=== PATIENT | female | born 1995 | race Caucasian/White ===

== ENCOUNTER 2016-04-30 02:29 | Outpatient (CLI) | payer BC, OTHER ==
[~2016-04-30] VITALS: Ht 167.6 cm; Wt 95.5 kg
[2016-04-30] VITALS (9 sets, daily range): BP systolic 104–129; BP diastolic 57–91
[~2016-04-30 02:29] MED LIST: ACETAMINOPHEN-1 EAC1 PO; CIPRO500 MG PO; FLEXERIL10 MG PO; MEDROL DOSEPAK4 MG PO; MOTRIN800 MG PO; PRENATAL TABLE1 EAC3 PO; PYRIDIUM100 MG PO; TYLENOL EXTRA500 MG PO
[2016-04-30 06:26] LABS: ADD MIUA? NO; BILIRUBIN NEGATIVE; BLOOD NEGATIVE; COLOR YELLOW ((YELLOW)); GLUCOSE (STRIP) NEGATIVE; KETONES NEGATIVE; LEUKOCYTES NEGATIVE; NITRITE NEGATIVE; PROTEIN (STRIP) NEGATIVE; SPECIFIC GRAVITY 1.014 (1.000-1.030); UCUL ADDED? NO
[2016-04-30] MEDS ORDERED: IRON325 MG PO (06:55)
[2016-04-30] MEDS ORDERED: IRON325 M1 PO (06:56)
[2016-04-30 07:07] LABS: AMPHETAMINES QUANT VALUE 0 NG/ML; BARBITUATES QUANT VALUE 0 NG/ML; BENZODIAZEPINES QUANT VALUE 0 NG/ML; BENZODIAZEPINES, URINE SCREEN Negative (200 ng/mL); MARIJUANA QUANT VALUE 0 NG/ML; OPIATES QUANTITATIVE VALUE 0 NG/ML; PHENCYCLIDINE QUANT VALUE 0 NG/ML
[2016-05-01 02:55] VITALS: BP 108/54
[2016-05-01 07:44] VITALS: BP 103/56
[2016-05-01 11:23] VITALS: BP 115/62
[2016-05-01] MEDS ORDERED: PROCARDIA20 MG PO (12:42)
== END 2016-05-01 13:32 | disposition home or self-care (01) ==
LOC: LDRP-OP 02:29 → 2WEST 02:30
PROVIDERS: Nurse Practitioner
DX: O47.03 False labor before 37 completed weeks of gestation, third trimester (principal); O99.89 Other specified diseases and conditions complicating pregnancy, childbirth and the puerperium; Z3A.30 30 weeks gestation of pregnancy; F41.1 Generalized anxiety disorder
CPT/HCPCS: 59025; 76815; 76817; 81003; G0378; J0702; J7030; J7120

== ENCOUNTER 2016-06-13 13:13 | Outpatient (CLI) | payer BC, OTHER ==
[~2016-06-13] VITALS: Ht 167.6 cm; Wt 98.9 kg
[~2016-06-13 13:13] MED LIST changes: +IRON325 M1 PO; +IRON325 MG PO; +PROCARDIA20 MG PO
[2016-06-13 13:41] VITALS: BP 133/85
[2016-06-13] MEDS ORDERED: EXCEDRIN EXTRA1 EACH PO (13:48)
[2016-06-13 15:29] VITALS: BP 127/67
[2016-06-13 17:37] VITALS: BP 125/73
[2016-06-13 18:54] VITALS: BP 127/77
[2016-06-13 20:30] VITALS: BP 122/65
[2016-06-13 21:10] VITALS: BP 131/79
== END 2016-06-13 22:10 | disposition home or self-care (01) ==
LOC: LDRP-OP → 2WEST 13:14 → LDRP-OP 08-05 14:02
DX: O60.03 Preterm labor without delivery, third trimester (principal); Z3A.36 36 weeks gestation of pregnancy
CPT/HCPCS: 59025; G0378; J0702; J7120

== ENCOUNTER 2016-06-14 14:11 | Outpatient (CLI) | payer BC, OTHER ==
[~2016-06-14] VITALS: Ht 167.6 cm; Wt 100.9 kg
[~2016-06-14 14:11] MED LIST changes: +EXCEDRIN EXTRA1 EACH PO
[2016-06-14 14:40] VITALS: BP 112/67
[2016-06-14 15:22] VITALS: BP 113/73
== END 2016-06-14 17:05 | disposition home or self-care (01) ==
LOC: LDRP-OP 14:11 → 2WEST 14:12 → LDRP-OP 08-05 00:04
DX: O47.03 False labor before 37 completed weeks of gestation, third trimester (principal); O99.89 Other specified diseases and conditions complicating pregnancy, childbirth and the puerperium; Z3A.36 36 weeks gestation of pregnancy
CPT/HCPCS: 59025; G0378

== ENCOUNTER 2016-06-15 14:42 | Outpatient (CLI) | payer BC, OTHER ==
[~2016-06-15] VITALS: Ht 167.6 cm; Wt 99.3 kg
[2016-06-15 14:45] VITALS: BP 135/90
[2016-06-15 16:12] VITALS: BP 117/65
[2016-06-15 16:43] VITALS: BP 121/76
[2016-06-15 17:45] VITALS: BP 133/75
[2016-06-16] MEDS ORDERED: PERCOCET 5/31 TABLET PO (20:13)
[2016-06-16] MEDS ORDERED: MOTRIN800 MG PO (20:13)
== END 2016-06-15 19:50 | disposition home or self-care (01) ==
LOC: LDRP-OP 14:42 → 2WEST 14:43 → LDRP-OP 08-05 17:12
DX: O47.1 False labor at or after 37 completed weeks of gestation (principal); Z3A.37 37 weeks gestation of pregnancy
CPT/HCPCS: 59025; G0378; J2270; J2550

== ENCOUNTER 2016-06-16 06:23 | Inpatient (IN) | payer BC, OTHER ==
[2016-06-16] VITALS (21 sets, daily range): BP systolic 95–143; BP diastolic 50–86
[~2016-06-16] VITALS: Ht 167.6 cm; Wt 100.6 kg
[2016-06-16 07:16] LABS: EOSINOPHIL (%) 0 % (0-5); HEMATOCRIT 33.7 % (36.0-46.0); IMMATURE GRANULOCYTE (%) 0.6 % (0.0-0.7); IMMATURE GRANULOCYTE COUNT 0.1 K/uL; LYMPHOCYTE COUNT 1.5 K/uL (1.0-2.8); MCH 28.9 PG (29.0-34.0); MCHC 33.2 G/DL (30.0-36.0); MCV 86.9 FL (83-99); MEAN PLAT.VOLUME 10.5 uM^3 (9.5-12.4); MONOCYTE (%) 6.8 % (3-12); MONOCYTE COUNT 1.3 K/uL (0-0.8); NEUTROPHIL (%) 84.7 % (45-76); NEUTROPHIL COUNT 16.2 K/uL (1.8-6.4); PLATELET COUNT 262 K/uL (156-360); RBC DIS.WIDTH-CV 15.2 % (11.8-14.6); RBC DIS.WIDTH-SD 47.3 % (39-53); RED BLOOD COUNT 3.88 M/uL (3.80-5.20); WHITE BLOOD COUNT 19.2 K/uL (4.1-10.2)
[2016-06-16] MEDS ORDERED: PERCOCET 5/31 TABLET PO (20:13)
[2016-06-16] MEDS ORDERED: MOTRIN800 MG PO (20:13)
[2016-06-16 22:03] LABS: BASE EXCESS -7.2 mEq/L (-3 to +3); BICARBONATE 22.4 mEq/L (22-26); CARBOXY HGB 0.4 % (0-5); PCO2 60 mm Hg (35-45)
[2016-06-16 22:08] LABS: PO2 < 28 mm Hg (80-100)
[2016-06-16 22:09] LABS: BASE EXCESS -11.6 mEq/L (-3 to +3); CARBOXY HGB 0.6 % (0-5); METHEMOGLOBIN 1.8 % (0-1.5); PCO2 53 mm Hg (35-45); PO2 < 28 mm Hg (80-100)
[2016-06-16 22:09] LABS: COMMENTS - BLOOD GASES C+; SITE VENOUS:PLACENTA; pH 7.18 (7.35-7.45)
[2016-06-16 22:10] LABS: SITE ARTERIAL:PLACENTA; pH 7.14 (7.35-7.45)
[2016-06-17] VITALS (12 sets, daily range): BP systolic 91–149; BP diastolic 51–66
[2016-06-17 07:20] LABS: EOSINOPHIL (%) 0.1 % (0-5); HEMATOCRIT 26.7 % (36.0-46.0); IMMATURE GRANULOCYTE (%) 0.4 % (0.0-0.7); IMMATURE GRANULOCYTE COUNT 0.1 K/uL; LYMPHOCYTE COUNT 1.5 K/uL (1.0-2.8); MCH 27.9 PG (29.0-34.0); MCHC 32.2 G/DL (30.0-36.0); MCV 86.7 FL (83-99); MONOCYTE (%) 5.3 % (3-12); MONOCYTE COUNT 0.9 K/uL (0-0.8); NEUTROPHIL (%) 85.1 % (45-76); NEUTROPHIL COUNT 14.1 K/uL (1.8-6.4); PLATELET COUNT 223 K/uL (156-360); RBC DIS.WIDTH-CV 15.6 % (11.8-14.6); WHITE BLOOD COUNT 16.5 K/uL (4.1-10.2)
[2016-06-17 07:35] LABS: RED BLOOD COUNT 3.08 M/uL (3.80-5.20)
[2016-06-18] VITALS (8 sets, daily range): BP systolic 106–121; BP diastolic 55–67
[2016-06-19 07:50] VITALS: BP 111/64
[2016-06-19 15:00] VITALS: BP 119/72
[2016-06-19 23:54] VITALS: BP 142/77
[2016-06-20 08:30] VITALS: BP 128/75
== END 2016-06-20 11:01 | disposition home or self-care (01) | DRG 765 ==
LOC: LDRP-OP 06:23 → 2WEST 06:24 → LDRP-OP 08-06 19:59
PROVIDERS: Midwife; Obstetrics & Gynecology
DX: O33.9 Maternal care for disproportion, unspecified (principal); D62 Acute posthemorrhagic anemia; O63.1 Prolonged second stage (of labor); O62.2 Other uterine inertia; O99.214 Obesity complicating childbirth; E66.9 Obesity, unspecified; Z68.33 Body mass index [BMI] 33.0-33.9, adult; O75.81 Maternal exhaustion complicating labor and delivery; O99.02 Anemia complicating childbirth; O66.5 Attempted application of vacuum extractor and forceps; Z3A.36 36 weeks gestation of pregnancy; Z3A.37 37 weeks gestation of pregnancy; Z37.0 Single live birth
CPT/HCPCS: 36600; 59025; 82247; 82248; 82803; 85025; 86850; 86900; 86901; C1755; G0378; J0595; J0690; J0702; J1170; J1885; J2250; J2270; J2274; J2405; J2550; J3010; J7120